=== PATIENT | male | born 2000 | race Caucasian/White ===

== ENCOUNTER 2025-01-14 18:02 | Emergency (ER) | payer SELFPAY ==
[~2025-01-14] VITALS: Ht 180.3 cm; Wt 70.5 kg
[2025-01-14] MEDS ORDERED: naloxone 2mg/2ml inj IV PRN (18:25)
--- NOTE | 2025-01-14 18:25 | Physician Documentation ---
History of Present Illness ~ Chief Complaint: Overdose Stated Complaint: OD Time Seen by MD: 18:14 [facility] 24-year-old male presents to the ED after reported OD on methamphetamine. He was found behind a local business unresponsive. EMS gave fluids and 4 mg intranasal Narcan with a positive affect. Patient states he does not use fentanyl. Says he also drank today. Patient A&O x4 on arrival to ER. Nasal airway was used by Fire and removed by EMS Day of Ingestion: Jan 14, 2025 Medication Reconciliation Allergies: Coded Allergies: No Known Allergies (Unverified , 01/14/25) Review of Systems All Other Systems at this time: Reviewed and Negative ROS As stated above in the HPI, otherwise all systems are reviewed and negative. Physical Exam Vital Signs: Heart Rate: 79, Respiratory Rate: 14, BP: 142/89, Pulse Oximetry: 97, Weight: 70.450 Oxygen Flow Rate: 2.0 Physical Exam General: Alert, no apparent distress. HEENT: PERRL, EOMI, no injection, moist mucous membranes. Neck: Full range of motion. Respiratory: Lungs clear, no respiratory distress. Chest: No accessory muscle use. Cardiovascular: Regular rate and rhythm, no murmurs. Gastrointestinal: Soft, nontender, nondistended. Bowels sounds present. Extremities: Normal range of motion, no deformity. Neurologic: Oriented x4. Psychiatric: Normal mood and affect. Skin: Normal color, warm and dry. No edema, no ecchymosis. Progress Results/Orders Results/Orders Orders - NARCISO JACOB ORNAMENTAL IRON ERECTOR Naloxone 2mg/2ml Inj (Narcan 2mg/2ml Inj (01/14/25 18:25) Gait Test (01/14/25 19:51) Reassess Pt For Discharge (01/14/25 19:51) Completed Orders - NARCISO JACOB ORNAMENTAL IRON ERECTOR Naloxone 2mg/2ml Inj (Narcan 2mg/2ml Inj (01/14/25 18:15) Normal Saline 1000ml (0.9% Sodium Chlori (01/14/25 18:45) Urinalysis, Cult If Indicated (01/14/25 18:43) Cbc/Diff (01/14/25 18:43) BMP (01/14/25 18:43) Lipase (01/14/25 18:43) CMP (01/14/25 18:43) Medications Received in ER Medications (Trade) Dose Ordered Sig/Alice Route PRN Reason Start Time Stop Time Status Last Admin Dose Admin (0.9% sodium chloride (NS) 1000ml IV soln) 1,000 ml ONCE ONCE IVB 01/14/25 18:45 01/14/25 18:46 DC 01/14/25 19:34 1,000 ML Vital Signs 01/14/25 01/14/25 01/14/25 18:09 19:05 19:26 Pulse 79 74 Resp 14 15 13 B/P (MAP) 142/89 121/69 (86) Pulse Ox 97 97 O2 Flow Rate 2.0 Laboratory Tests Test 01/14/25 18:25 01/14/25 19:55 White Blood Count 7.5 Red Blood Count 4.33 L Hemoglobin 13.9 L Hematocrit 41.8 L Mean Corpuscular Volume 96.7 Mean Corpuscular Hemoglobin 32.1 H Mean Corpuscular Hemoglobin Concent 33.2 Red Cell Distribution Width 14.1 Platelet Count 190 Mean Platelet Volume 8.2 Neutrophils (%) (Auto) 69.1 Lymphocytes (%) (Auto) 23.9 Monocytes (%) (Auto) 4.9 Eosinophils (%) (Auto) 1.6 Basophils (%) (Auto) 0.5 Neutrophils # (Auto) 5.2 Lymphocytes # (Auto) 1.8 Monocytes # (Auto) 0.4 Eosinophils # (Auto) 0.1 Basophils # (Auto) 0.0 CBC Comment Sodium Level 142 Potassium Level 4.1 Chloride Level 107 Carbon Dioxide Level 28.5 Anion Gap 7 L Blood Urea Nitrogen 15 Creatinine 1.11 H Estimated GFR/1.73 m2 81 BUN/Creatinine Ratio 13.5 Glucose Level 147 H Calcium Level 8.4 L Total Bilirubin 0.2 Aspartate Amino Transf (AST/SGOT) 30 Alanine Aminotransferase (ALT/SGPT) 37 Alkaline Phosphatase 81 Total Protein 6.5 Albumin 3.5 Globulin 3.0 Albumin/Globulin Ratio 1.2 Lipase 48 Chemistry Comments Urine Specimen Description Voided Urine Color Yellow Urine Clarity Clear Urine pH 6.0 Urine Specific [place] 1.025 Urine Protein Negative Urine Glucose (UA) Negative Urine Ketones Negative Urine Occult Blood Negative Urine Nitrite Negative Urine Bilirubin Negative Urine Urobilinogen 0.2 Urine Leukocyte Esterase Negative Urine Culture Indicated Not ind Volume Urine Centrifuged 10 ml Urine Comment Medical Decision Making Findings Patient was evaluated for a likely will fentanyl overdose based on his pinpoint pupils and somnolent presentation. He was a positive response to Narcan. We observed him for proximally 2 hours made known of increased alertness. He has a gait tested prior to discharge. Unfortunately he has been kicked out of the [employer] which complicates safe transport. Differential Dx:Considerations: Include: Alcohol abuse, Anxiety, Bipolar disorder, Conversion disorder, Delirium, Depression, Drug Overdose-Accidental, Drug Overdose-Intentional, Encephalopathy, Hallucinations, Homicidal, Liver failure, Panic disorder, Personality disorder, Renal failure, Respiratory failure, Schizophrenia, Substance abuse, Suicidal attempt, Suidical gesture, Other Departure Disposition: 01 HOME / SELF CARE / HOMELESS Impression: Primary Impression: Poisoning by opiate or related narcotic Condition: Stable Referrals: NO PRIMARY CARE PROVIDER (PCP) Signature Scribe Signature: i Attestation: Scribed for Narciso Jacob Melter Clerk by Narciso Edouard NP . 01/14/25 18:26 NARCISO JACOB NP Jan 14, 2025 18:25
[2025-01-14 19:05] VITALS: PULSE 74
[2025-01-14 19:10] LABS: MEAN PLATELET VOLUME 8.2 FL (7.4-10.4); RED CELL DISTRIBUTION WIDTH 14.1 % (11.5-14.5)
[2025-01-14 19:17] LABS: CREATININE 1.11 MG/DL (0.60-1.10); TOTAL CARBON DIOXIDE 28.5 MMOL/L (24-32); eCRCL 102 ML/MIN; eGFR 81 ML/MIN
[2025-01-14] MEDS: normal saline 1000ML IV soln IVB ONE (19:34)
[2025-01-14] MEDS: naloxone 2mg/2ml inj IV STA (19:49)
[2025-01-14 20:14] LABS: LEUKOCYTE ESTERASE ,URINE NEGATIVE (Neg); NITRITES, URINE NEGATIVE (Neg); OCCULT BLOOD,URINE NEGATIVE (Neg)
[2025-01-14 20:16] LABS: UA COLLECTION TYPE VOIDED
[2025-01-14 21:02] VITALS: BP 131/91; RESP 14; O2SAT 98
== END 2025-01-14 21:24 | disposition home or self-care (01) ==
LOC: ER 18:05
DX: T40.601A Poisoning by unspecified narcotics, accidental (unintentional), initial encounter (principal); R40.4 Transient alteration of awareness; Y92.89 Other specified places as the place of occurrence of the external cause
CPT/HCPCS: 36415; 80053; 81003; 83690; 85025; 96360; 99283; J7030

== ENCOUNTER 2025-04-23 21:28 | Emergency (ER) | payer MEDICAID, OTHER ==
[~2025-04-23] VITALS: Ht 180.3 cm; Wt 70.7 kg
[2025-04-23 21:30] VITALS: BP 138/69
--- NOTE | 2025-04-23 22:28 | Physician Documentation ---
History of Present Illness ~ Chief Complaint: Hand pain Stated Complaint: SWOLLEN THUMB Time Seen by MD: 22:21 HPI Patient presents to the emergency room with pain and swelling to his right thumb. Patient has a poor historian. States it has been going on for some time. No fevers. He states he has tried to squeeze it a few times. Patient very sleepy Tetanus within 5 years: Yes Medication Reconciliation Allergies: Coded Allergies: No Known Allergies (Unverified , 01/14/25) Scheduled Sulfamethoxazole/Trimethoprim (Bactrim Ds Tablet), 1 TAB PO Q12H Review of Systems ROS All review of systems negative except as per HPI Physical Exam Vital Signs: Temperature: 99.2, Source: Oral, Heart Rate: 112, Respiratory Rate: 18, BP: 138/69, Pulse Oximetry: 98, Weight: 70.700 Oxygen Flow Rate: 0 Physical Exam General: Patient is sleeping, easily arousable in no acute distress Head: Normocephalic and atraumatic. Eyes: Conjunctival normal. EOMI. PERRL. ENT: Mucous membranes moist. Neck: Supple, trachea is midline. Chest: Clear to auscultation bilaterally without rales, rhonchi, or wheezes. There is no accessory muscle use or retractions. Cardiac: Tachycardic and regular without murmurs, gallops, or rubs. Extremities: Right thumb with chronic appearing infection to the pad of his affected digit. Chronic skin changes of affected digit. Movements intact Procedures Procedures Incision and drainage: Status post informed verbal consent patient had digital block performed by myself using 1% lidocaine without epinephrine to a total of 2 cc to his affected digit on his right hand. 11. Blade utilized perform incision and drainage on the pad of his 1st digit. Proximally 2-3 cc of purulent drainage expressed as well as blood. Wound de loculated. Bandage applied along with antibiotic o intment. Patient tolerated procedure well without complication. Total time of procedure 10 minutes. Progress Results/Orders Results/Orders Orders - RICH HERNANDEZ MD Hand, Complete (3vw Min) (04/23/25 22:07) Dressing Orders (04/23/25 22:28) Laceration/I&D Tray Set Up (04/23/25 22:28) Wound Care Orders (04/23/25 22:28) Ondansetron Disint. Tablet (Zofran Odt T (04/23/25 23:00) Sulfamethox/Trimetho. Ds Tab (Septra Ds (04/23/25 23:00) Completed Orders - RICH HERNANDEZ MD Hand, Complete (3vw Min) (04/23/25 22:07) Lidocaine 1% W/Epi 1:100,000 (Xylocaine (04/23/25 22:30) Bacitracin Ointment (Bacitracin Ointment (04/23/25 22:30) Vital Signs 04/23/25 21:30 Temp 99.2 Pulse 112 Resp 18 B/P (MAP) 138/69 Pulse Ox 98 O2 Flow Rate 0 Medical Decision Making Additional information obtaine: old records Findings Patient presents to the emergency room for evaluation of abscess to his right thumb as per HPI. Patient is status post incision and drainage. Antibiotics initiated. Patient demonstrates very poor insight. ER precautions discussed General Diff Dx:Considerations: Include: Abrasion, Contusion, Fracture, Hematoma, Laceration, Malunion, Neurovascular injury, Open fracture, Sprain, Ulcer, Other Shoulder Diff Dx:Consideration: Include: AC separation, Adhesive capsulitis, Arthritis, Bicipital tendonitis, Calcific tendonitis, Cervical disc disease, Contusion, Dislocation, Fracture-humerus, Fracture-scapula, Fracture-clavicle, GB disease, Hematoma, Impingement syndrome, Myocardial infarction, Neurovascular injury, Open fracture-humerus, Open fracture-scapula, Open fracture-clavicle, Rotator cuff injury, SC dislocatoin, Sprain, Subacromial bursitis, Other Elbow Diff Dx:Considerations: Include: Abrasion, Arthritis, Contustion, DJD, Fracture-humerus, Fracture-radial head, Fracture-radius, Fracture-ulna, Gout, Hematoma, Laceration, Neurovascular injury, Olecranon bursitis, Open fracture, Osteomyelitis, Radial head subluxation, Rheumatoid arthritis, Septic, Sprain, Ulcer, Other Wrist Diff Dx:Considerations: Include: Abrasion, Arthritis, DJD, Gout, Rheumatoid, Septic, Carpal tunnel snydrome, Contusion, Dislocation, Fracture-carpal, Fracture-radius, Fracture-ulna, Ganglion, Laceration, Neurovascular injury, Open fracture, Strain, Other Hand Diff Dx:Considerations: Include: Abrasion, Arthritis, Contusion, DJD, Felon, Fracture-carpal, Fracture-metacarpal, Fracture-phalynx, Fracture-radius, Fracture-ulna, Gout, Hematoma, Herpetic [place], Laceration, Neurovascular injury, Open fracture, Paronychia, Rheumatoid arthritis, Septic, Sprain, Subungual hematoma, Tenosynovitis, Volar plate injury, Cellulitis, Malunion, O ther Finger Diff Dx:Considerations: Include: Abrasion, Cellulitis, Contusion, Dislocation, Fracture, Hematoma, Laceration, Neurovascular injury, Open fracture, Subungual hematoma, Other Departure Disposition: 01 HOME / SELF CARE / HOMELESS Impression: Primary Impression: Abscess Condition: Stable Discharge Instructions: Abscess, Care After Referrals: NO PRIMARY CARE PROVIDER (PCP) Prescriptions Sulfamethoxazole/Trimethoprim (Bactrim Ds Tablet) 800 Mg-160 Mg Tablet 1 TAB PO Q12H for 10 Days, #20 TAB Prov: RICH HERNANDEZ MD 04/23/25 Signature Scribe Signature: No scribe Attestation: The note accurately reflects work and decisions made by me.Rich Hernandez MD 04/23/25 23:04 RICH HERNANDEZ MD Apr 23, 2025 22:27
--- NOTE | 2025-04-23 22:34 | RADIOLOGY REPORT ---
CLINICAL INDICATION: HAND PAIN RIGHT TECHNIQUE: HAND 3VWDI HAND, COMPLETE (3VW MIN) Comparison: None FINDINGS/IMPRESSION: : There is no evidence of acute fracture or dislocation. Soft tissues are unremarkable.
[2025-04-23] MEDS ORDERED: SULF1TAB49 PO (23:01)
[2025-04-23] MEDS: LIDOcaine 1% W/epiNEPHrine 1:100,000 20ml vial IJ ONE (23:06)
[2025-04-23] MEDS: ondansetron 4mg rapidly disintigrating tab PO ONE (23:10)
[2025-04-23] MEDS: sulfamethoxazole/trimethoprim DS (800/160mg) tablet PO ONE (23:10)
[2025-04-23] MEDS: bacitracin 15gm ointment TP ONE (23:11)
[2025-04-23 23:16] VITALS: PULSE 100; RESP 20; TEMP 99.2; O2SAT 94
== END 2025-04-23 23:30 | disposition home or self-care (01) ==
LOC: ER 21:28
DX: L02.511 Cutaneous abscess of right hand (principal); Z79.899 Other long term (current) drug therapy
CPT/HCPCS: 26010; 73130; 99283; A6449

== ENCOUNTER 2025-05-10 17:36 | Emergency (ER) | payer MEDICAID ==
[~2025-05-10] VITALS: Ht 180.3 cm; Wt 70.5 kg
[~2025-05-10 17:36] MED LIST: AMOX-580 PO; NO HOME MEDS
[2025-05-10 17:54] VITALS: BP 141/88; PULSE 114; RESP 16; O2SAT 93
[2025-05-10 18:34] VITALS: TEMP 98
--- NOTE | 2025-05-10 18:38 | Physician Documentation ---
History of Present Illness ~ Chief Complaint: Hand pain Stated Complaint: HAND WOUND Time Seen by MD: 18:16 Primary Medical Doctor: none HPI Patient is a very pleasant 24-year-old male that presents to the emergency department for re-evaluation of hand pain. The patient was seen here a couple of hours ago. Patient has not yet picked up his antibiotics. Patient has had no changes to the status of his hand no new injuries no new concerning findings or symptoms. Patient reports that he has social needs at this time and no where to go. Patient will be given a list of resources and assistance in understanding those resources prior to discharge. Patient denies any new symptoms no fever chills nausea vomiting diarrhea no new injury to the hand. No other symptoms reported at this time. Tetanus within 5 years: Yes Medication Reconciliation Allergies: Coded Allergies: No Known Allergies (Unverified , 05/10/25) Scheduled Amox Tr/Potassium Clavulanate 875/125 MG (Augmentin 875/125 MG), 1 TAB PO BID Miscellaneous Medications Home Med List (No Home Medications), (Reported) Discontinued Medications Sulfamethoxazole/Trimethoprim (Bactrim Ds Tablet), 1 TAB PO Q12H Discontinued Reason: Auto Discontinued Past Medical History Patient History: Patient reports no known family medical history. Review of Systems ROS As stated above in the HPI, otherwise all systems are reviewed and negative. Physical Exam Vital Signs: Temperature: 98.0, Source: Temporal, Heart Rate: 114, Respiratory Rate: 16, BP: 141/88, Pulse Oximetry: 93, Weight: 70.500 Oxygen Flow Rate: 0 Physical Exam VITALS: Reviewed and as above. GENERAL: Alert, no apparent distress. HEENT: Normocephalic, atraumatic, PERRL, EOMI, dry mucosa, no erythema RESPIRATORY: Lungs clear, normal breath sounds, no respiratory distress. CHEST: No accessory muscle use, no retractions CV: Regular rate, rhythm, no edema, no murmur, No: JVD GI: Soft, non-tender, bowels sounds present, no rebound, guarding, or rigidity BACK: No CVA tenderness, or swelling MUSCULOSKELETAL No deformities, mild edema noted to the left hand, hand is wrapped as the patient was seen here earlier in the day no new injuries reported we will leave the hand wrapped at this time, obvious drainage noted no significant swelling noted good cap refill no new symptoms noted during examination. SKIN: Warm and dry, no rash NEURO: Oriented x4, No motor or sensory deficit PSYCH: Normal mood and affect, no agitation Progress Results/Orders Results/Orders Vital Signs 05/10/25 17:54 Temp 98.0 Pulse 114 Resp 16 B/P (MAP) 141/88 Pulse Ox 93 O2 Flow Rate 0 Medical Decision Making Additional information obtaine: other Findings Patient is a very pleasant 24-year-old male that presents to the emergency department for re-evaluation of hand pain. The patient was seen here a couple of hours ago. Patient has not yet picked up his antibiotics. Patient has had no changes to the status of his hand no new injuries no new concerning findings or symptoms. Patient reports that he has social needs at this time and no where to go. Patient will be given a list of resources and assistance in understanding those resources prior to discharge. Patient denies any new symptoms no fever chills nausea vomiting diarrhea no new injury to the hand. No other symptoms reported at this time. Patient has no new symptoms and no new injuries. The patient will be discharged with the same instructions that he was provided a couple of hours ago. Patient will follow up with the pharmacy and mushroom picker his medications. Patient will follow up with his primary care provider. Patient will return to the emergency department with any worsening of his current symptoms or any additional concerning symptoms that we discussed here today. General Diff Dx:Considerations: Include: Abrasion, Contusion, Fracture, Hematoma, Laceration, Malunion, Neurovascular injury, Open fracture, Sprain, Ulcer, Other Shoulder Diff Dx:Consideration: Include: AC separation, Adhesive capsulitis, Arthritis, Bicipital tendonitis, Calcific tendonitis, Cervical disc disease, Contusion, Dislocation, Fracture-humerus, Fracture-scapula, Fracture-clavicle, GB disease, Hematoma, Impingement syndrome, Myocardial infarction, Neurovascular injury, Open fracture-humerus, Open fracture-scapula, Open fracture-clavicle, Rotator cuff injury, SC dislocatoin, Sprain, Subacromial bursitis, Other Elbow Diff Dx:Considerations: Include: Abrasion, Arthritis, Contustion, DJD, Fracture-humerus, Fracture-radial head, Fracture-radius, Fracture-ulna, Gout, Hematoma, Laceration, Neurovascular injury, Olecranon bursitis, Open fracture, Osteomyelitis, Radial head subluxation, Rheumatoid arthritis, Septic, Sprain, Ulcer, Other Wrist Diff Dx:Considerations: Include: Abrasion, Arthritis, DJD, Gout, Rheumatoid, Septic, Carpal tunnel snydrome, Contusion, Dislocation, Fracture- carpal, Fracture-radius, Fracture-ulna, Ganglion, Laceration, Neurovascular injury, Open fracture, Strain, Other Hand Diff Dx:Considerations: Include: Abrasion, Arthritis, Contusion, DJD, Felon, Fracture-carpal, Fracture-metacarpal, Fracture-phalynx, Fracture-radius, Fracture-ulna, Gout, Hematoma, Herpetic [place], Laceration, Neurovascular injury, Open fracture, Paronychia, Rheumatoid arthritis, Septic, Sprain, Subungual hematoma, Tenosynovitis, Volar plate injury, Cellulitis, Malunion, Other Finger Diff Dx:Considerations: Include: Abrasion, Cellulitis, Contusion, Dislocation, Fracture, Hematoma, Laceration, Neurovascular injury, Open fracture, Subungual hematoma, Other Departure Disposition: 01 HOME / SELF CARE / HOMELESS Impression: Primary Impression: Hand pain Condition: Stable Additional Instructions: Patient is a very pleasant 24-year-old male that presents to the emergency department for re-evaluation of hand pain. The patient was seen here a couple of hours ago. Patient has not yet picked up his antibiotics. Patient has had no changes to the status of his hand no new injuries no new concerning findings or symptoms. Patient reports that he has social needs at this time and no where to go. Patient will be given a list of resources and assistance in understanding those resources prior to discharge. Patient denies any new symptoms no fever chills nausea vomiting diarrhea no new injury to the hand. No other symptoms reported at this time. Patient has no new symptoms and no new injuries. The patient will be discharged with the same instructions that he was provided a couple of hours ago. Patient will follow up with the pharmacy and mushroom picker his medications. Patient will follow up with his primary care provider. Patient will return to the emergency department with any worsening of his current symptoms or any additional concerning symptoms that we discussed here today. Referrals: NO PRIMARY CARE PROVIDER (PCP) Education Educated: Patient Educated regarding: diagnosis, treatment, need for follow up Signature Scribe Signature: A Attestation: Scribed for Nagi Marin by SUSAN Cronin . 05/10/25 18:38 NAGI MARIN PANTOGRAPH MACHINE SET UP OPERATOR May 10, 2025 18:38
== END 2025-05-10 18:45 | disposition home or self-care (01) ==
LOC: ER 17:36
DX: M79.642 Pain in left hand (principal)
CPT/HCPCS: 99282

== ENCOUNTER 2025-05-15 16:26 | Emergency (ER) | payer MEDICAID ==
[~2025-05-15] VITALS: Ht 180.3 cm; Wt 68.7 kg
--- NOTE | 2025-05-15 17:23 | Physician Documentation ---
History of Present Illness ~ Chief Complaint: Finger pain Stated Complaint: FINGER PAIN Time Seen by MD: 17:14 Primary Medical Doctor: none HPI This is the 3rd time this 24-year-old male has presented for the same symptoms and still not having picked up his antibiotics that were previously prescribed. He presents as though his highly under the influence of methamphetamine. Does have a Band-Aid on the affected thumb. He is that has drainage from the ulcer in the anterior aspect of his right thumb. He has any fevers or nausea vomiting. denies drug use Day of Onset: May 15, 2025 Tetanus within 5 years: Yes Medication Reconciliation Allergies: Coded Allergies: No Known Allergies (Unverified , 05/10/25) Scheduled Amox Tr/Potassium Clavulanate 875/125 MG (Augmentin 875/125 MG), 1 TAB PO BID Miscellaneous Medications Home Med List (No Home Medications), (Reported) Past Medical History Patient History: Patient reports no known family medical history. Review of Systems All Other Systems at this time: Reviewed and Negative ROS As stated above in the HPI, otherwise all systems are reviewed and negative. Physical Exam Vital Signs: Temperature: 98.4, Source: Oral, Heart Rate: 120, Respiratory Rate: 18, BP: 140/91, Pulse Oximetry: 98, Weight: 68.700 Oxygen Flow Rate: 0 Physical Exam General: Alert, no apparent distress. Cardiovascular: tachycardic and rhythm, no murmurs. Extremities: Normal range of motion, no deformityaterior aspect of right thumb has a notable ulcer that has draining however that has no erythema or increased swelling to the region, ulcer is proximally 2 cm in width Neurologic: Oriented x4. Psychiatric: Normal mood and affect. Skin: Normal color, warm and dry. No edema, no ecchymosis. Progress Results/Orders Results/Orders Completed Orders - NARCISO JACOB CRIMINAL DEFENSE ATTORNEY Ceftriaxone Im Kit W/Lidocaine (Rocephin (05/15/25 17:20) Vital Signs 05/15/25 16:32 Temp 98.4 Pulse 120 Resp 18 B/P (MAP) 140/91 Pulse Ox 98 O2 Flow Rate 0 Medical Decision Making Additional information obtaine: old records Findings This patient although noncompliant does not appear to have worsening since symptoms based on my viewing of his previous records. Going to give him a shot of Rocephin and advised him again to brick picker his antibiotics. In addition I recommended to cease using methamphetamine General Diff Dx:Considerations: Unlikely: Abrasion, Contusion, Fracture, Hematoma, Laceration, Malunion, Neurovascular injury, Open fracture, Sprain, Ulcer, Other Shoulder Diff Dx:Consideration: Unlikely: AC separation, Adhesive capsulitis, Arthritis, Bicipital tendonitis, Calcific tendonitis, Cervical disc disease, Contusion, Dislocation, Fracture-humerus, Fracture-scapula, Fracture-clavicle, GB disease, Hematoma, Impingement syndrome, Myocardial infarction, Neurovascular injury, Open fracture-humerus, Open fracture-scapula, Open fracture-clavicle, Rotator cuff injury, SC dislocatoin, Sprain, Subacromial bursitis, Other Elbow Diff Dx:Considerations: Unlikely: Abrasion, Arthritis, Contustion, DJD, Fracture-humerus, Fracture-radial head, Fracture-radius, Fracture-ulna, Gout, He matoma, Laceration, Neurovascular injury, Olecranon bursitis, Open fracture, Osteomyelitis, Radial head subluxation, Rheumatoid arthritis, Septic, Sprain, Ulcer, Other Wrist Diff Dx:Considerations: Unlikely: Abrasion, Arthritis, DJD, Gout, Rheumatoid, Septic, Carpal tunnel snydrome, Contusion, Dislocation, Fracture- carpal, Fracture-radius, Fracture-ulna, Ganglion, Laceration, Neurovascular injury, Open fracture, Strain, Other Hand Diff Dx:Considerations: Unlikely: Abrasion, Arthritis, Contusion, DJD, Felon, Fracture-carpal, Fracture-metacarpal, Fracture-phalynx, Fracture-radius, Fracture-ulna, Gout, Hematoma, Herpetic [place], Laceration, Neurovascular injury, Open fracture, Paronychia, Rheumatoid arthritis, Septic, Sprain, Subungual hematoma, Tenosynovitis, Volar plate injury, Cellulitis, Malunion, Other Finger Diff Dx:Considerations: Include: Abrasion, Cellulitis, Contusion, Dislocation, Fracture, Hematoma, Laceration, Neurovascular injury, Open fracture, Subungual hematoma, Other Departure Disposition: 01 HOME / SELF CARE / HOMELESS Impression: Primary Impression: Infection of thumb Condition: Stable Referrals: NO PRIMARY CARE PROVIDER (PCP) Prescriptions Sulfamethoxazole/Trimethoprim (Septra Ds Tab) 800 Mg/160 Mg Tablet 1 TAB PO Q12H for 10 Days, #20 TAB Prov: NARCISO JACOB NP 05/15/25 Signature Scribe Signature: g Attestation: Scribed for Narciso Jacob Np by Narciso Edouard NP . 05/15/25 17:26 NARCISO JACOB NP May 15, 2025 17:23
[2025-05-15] MEDS ORDERED: SULF-16 PO (17:26)
[2025-05-15] MEDS: CefTRIAXone 1000mg IM Kit (w/lidocaine diluent) IM ONE (20:14)
[2025-05-15 20:36] VITALS: BP 130/84; PULSE 82; RESP 18; TEMP 98.6; O2SAT 99
== END 2025-05-15 20:38 | disposition home or self-care (01) ==
LOC: ER 16:27
DX: L08.9 Local infection of the skin and subcutaneous tissue, unspecified (principal)
CPT/HCPCS: 96372; 99283; J0696